=== PATIENT | male | born 1940 | race Caucasian/White ===

== ENCOUNTER 2019-06-26 17:27 | Emergency (ER) | payer MEDICARE, OTHER ==
--- NOTE | 2019-06-26 18:38 | EDM.PDOC ---
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 He was off his oxygen and carrying some materials. He was found unresponsive and blue on the floor outside. He was unresponsive for about 2 minutes before he woke and was gasping for air. Spouse started his oxygen and called for EMS. On EMS arrival to scene, patient was alert and oriented, responsive to verbal command. Had no symptoms, but still has peripheral cyanosis. He was palced on oxygen and brought into emergency room. In emergency room, pt is alert and wake. His SPO2 of room air is around 80%. His SPO2 did quickly improve above 92% on 2 litres of oxygen which is his baseline. No fever or chills. No cough, or shortness of breath. No chest pain or shortness of breath. No back pain, nausea of vomiting.No sweating. He has no complaints in the emergency room. Onset: Today Onset Date: 06/26/19 Onset Time: 15:30 Duration: Resolved Prior to Arrival Context: Denies: Trauma Associated Symptoms: Reports: Syncope. Denies: Confusion, Chest Pain, Cough, Diaphoresis, Fever/Chills, Headaches, Nausea/Vomiting, Rash, Seizure, Shortness of Breath, Weakness - Related Data Allergies Allergy/AdvReac Type Severity Reaction Status Date / Time naproxen Allergy Stomach Verified 06/26/19 18:38 Upset azithromycin AdvReac Stomach Verified 06/26/19 18:38 Ache Home Meds: Home Meds Albuterol [Proventil Neb Soln] 1 ampule INH Q4HR PRN 08/13/18 [History] Ascorbate Calcium [Vitamin C] 1 tab PO DAILY 08/13/18 [History] Aspirin [Aspirin EC] 325 mg PO DAILY 08/13/18 [History] Budesonide/Formoterol Fumarate [Symbicort 160-4.5 Mcg Inhaler] 1 puff IH BID [History] Calcium Carbonate [Calcium] 600 mg PO DAILY 08/13/18 [History] Metoprolol Succinate [Toprol XL 100mg] 100 mg PO BEDTIME 08/13/18 [History] Multivit-Min/FA/Lycopene/Lut [Sentry Senior Tablet] 1 each PO DAILY 08/13/18 [ History] Nitroglycerin [Nitrostat] 0.4 mg SL ASDIRECTED PRN 08/13/18 [History] [place]-3/DHA/Epa/Fish Oil [[place] 3 500 Softgel] 2 each PO DAILY 08/13/18 [History ] Omeprazole 1 cap PO DAILY 08/13/18 [History] amLODIPine Besylate [Norvasc] 2.5 mg PO DAILY 08/13/18 [History] Nitroglycerin [Nitrostat] 0.4 mg SL ASDIRECTED 06/26/19 [History] ED ROS GENERAL - Review of Systems Review Of Systems: See Below Constitutional: Denies: Fever, Chills HEENT: Denies: Rhinitis, Throat Pain Respiratory: Denies: Shortness of Breath, Wheezing, Pleuritic Chest Pain, Cough , Sputum Cardiovascular: Denies: Chest Pain, Lightheadedness GI/Abdominal: Denies: Abdominal Pain, Decreased Appetite, Nausea, Vomiting Musculoskeletal: Denies: Neck Pain, Shoulder Pain, Joint Pain, Joint Swelling Skin: Denies: Bruising, Pruritis Neurological: Denies: Confusion, Dizziness, Headache, Numbness, Tingling Psychiatric: Denies: Agitation, Anxiety ED EXAM, GENERAL - Physical Exam Exam: See Below Exam Limited By: No Limitations General Appearance: Alert, WD/WN, No Apparent Distress Eye Exam: Bilateral Eye: EOMI, PERRL Ears: Normal External Exam, Normal Canal, Hearing Grossly Normal, Normal TMs Ear Exam: Bilateral Ear: Auricle Normal, Canal Normal, TM normal Nose: Normal Inspection, Normal Mucosa, No Blood Throat/Mouth: Normal Inspection, Normal Lips, Normal Teeth, Normal Gums, Normal Oropharynx, Normal Voice, No Airway Compromise Head: Atraumatic, Normocephalic Neck: Normal Inspection, Supple, Non-Tender, Full Range of Motion Respiratory/Chest: No Respiratory Distress, Lungs Clear, Normal Breath Sounds, No Accessory Muscle Use, Chest Non-Tender Cardiovascular: Normal Peripheral Pulses, Regular Rate, Rhythm, No Edema, No Gallop, No JVD, No Murmur, No Rub GI/Abdominal: Normal Bowel Sounds, Soft, Non-Tender, No Organomegaly, No Distention, No Abnormal Bruit, No Mass Extremities: Normal Inspection Neurological: Alert, Oriented, CN II-XII Intact, Normal Cognition, Normal Gait, Normal Reflexes, No Motor/Sensory Deficits Skin Exam: Warm, Intact EKG INTERPRETATION EKG Date: 06/26/19 Rhythm: NSR Rate (Beats/Min): 55 [place]: Normal P-Wave: Present QRS: Normal ST-T: Normal QT: Normal EKG Interpretation Comments: Sinus bradycardia Course - Vital Signs Text/Narrative:: 79 year old male who has severe end stage O2 dependent COPD, had a short episode of syncope with low oxygen saturation. Spouse claims that his SPO2 does drop into 70s at time when no t on oxygen, but never has passed out. Pt's clinical exam is normal. He is asymptomatic. Considering his history. Did get EKG , which is in sinus bradycardia with no acute changes. Also Routine labs and cardiac enzymes ordered.His chest X-ray appears stable. His BC is normal. CMP is stable. His Troponin is negative. Apparently patient uses oxygen all the time. Today he was off his oxygen, outdoor door at subzero temperature nd exerting. All these activities has increased his oxygen demand, which has caused quick drop in his SPO2 and caused this hypoxic syncope. Patient has recovered very quickly, with out any complications. Pt and spouse reassured, that he should have his oxygen all the time at baseline of 2 liters per minutes. It can be increased to 3-4 liters when he is exerting or active. Pt has remained hemodynamically stable all through the emergency room stay.His syncopal episode might be due to increased oxygen demand , accelerated by increased work demand and the out door cold temperature. Last Recorded V/S: Last Vital Signs Temp 97 F 06/26/19 18:23 Pulse 56 L 06/26/19 18:45 Resp 20 06/26/19 18:45 BP 149/69 H 06/26/19 18:45 Pulse Ox 91 L 06/26/19 18:56 - Orders/Labs/Meds Orders: Active Orders 24 hr Category Date Time Status EKG Documentation Completion [RC] ASDIRECTED Care 06/26/19 18:21 Ordered Chest 1V Frontal [CR] Stat Exams 06/26/19 18:21 Ordered EKG 12 Lead [EK] Routine Ther 06/26/19 18:20 Ordered Labs: Laboratory Tests 06/26/19 06/26/19 Range/Units 18:30 18:30 WBC 7.1 (4.0-11.0) K/uL RBC 5.98 (4.50-6.50) M/uL Hgb 13.3 (13.0-18.0) g/dL Hct 43.7 (40.0-54.0) % MCV 73 L (76-96) fL MCH 22.2 L (27.0-32.0) pg MCHC 30.4 L (31.0-35.0) g/dL RDW 21.5 H (11.0-16.0) % Plt Count 208 (150-400) K/uL MPV 11.0 H (6.0-10.0) fL Neut % (Auto) 71.8 H (45.0-70.0) % Lymph % (Auto) 13.7 L (20.0-40.0) % [place] % (Auto) 10.4 H (3.0-10.0) % Eos % (Auto) 2.8 (1.0-5.0) % Baso % (Auto) 1.3 H (0.0-0.5) % Neut # (Auto) 5.09 (2.00-7.50) K/uL Lymph # (Auto) 0.97 L (1.50-4.00) K/uL [place] # (Auto) 0.74 (0.20-0.80) K/uL Eos # (Auto) 0.20 (0.04-0.40) K/uL Baso # (Auto) 0.09 (0.02-0.10) K/uL Sodium 140 (136-145) mmol/L Potassium 4.2 (3.5-5.1) mmol/L Chloride 103 (98-107) mmol/L Carbon Dioxide 27.6 (21.0-32.0) mmol/L Anion Gap 13.6 (5.0-15.0) mmol/L BUN 12 (8-26) mg/dL Creatinine 0.83 (0.70-1.30) mg/dL Est Cr Clr Drug Dosing 60.72 mL/min Estimated GFR (MDRD) > 60 (>60) MLS/MIN BUN/Creatinine Ratio 14.5 (6-25) Glucose 95 (74-100) mg/dL Calcium 8.9 (8.5-10.1) mg/dL Total Bilirubin 0.3 D (0.0-1.0) mg/dL AST 25 (15-37) U/L ALT 19 (12-78) U/L Alkaline Phosphatase 96 (46-116) U/L Troponin I < 0.017 (0.000-0.060) ng/mL Total Protein 7.9 (6.4-8.2) g/dL Albumin 3.6 (3.4-5.0) g/dL Globulin 4.3 H (2.2-4.2) g/dL Albumin/Globulin Ratio 0.8 (0.8-2.0) Departure - Departure Time of Disposition: 19:10 Disposition: Home, Self-Care 01 Condition: Fair Clinical Impression: Non-cardiac syncope, COPD (chronic obstructive pulmonary disease), Hypoxia - Discharge Information *PRESCRIPTION DRUG MONITORING PROGRAM REVIEWED*: Not Applicable *COPY OF PRESCRIPTION DRUG MONITORING REPORT IN PATIENT ROBINSON: Not Applicable Forms: ED Department Discharge Additional Instructions: 79 year old male who has severe end stage O2 dependent COPD, had a short episode of syncope with low oxygen saturation. Spouse claims that his SPO2 does drop into 70s at time when no t on oxygen, but never has passed out. Pt's clinical exam is normal. He is asymptomatic. Considering his history. Did get EKG , which is in sinus bradycardia with no acute changes. Also Routine labs and cardiac enzymes ordered.His chest X-ray appears stable. His BC is normal. CMP is stable. His Troponin is negative. Apparently patient uses oxygen all the time. Today he was off his oxygen, outdoor door at subzero temperature nd exerting. All these activities has increased his oxygen demand, which has caused quick drop in his SPO2 and caused this hypoxic syncope. Patient has recovered very quickly, with out any complications. Pt and spouse reassured, that he should have his oxygen all the time at baseline of 2 liters per minutes. It can be increased to 3-4 liters when he is exerting or active. Pt has remained hemodynamically stable all through the emergency room stay.His syncopal episode might be due to increased oxygen demand , accelerated by increased work demand and the out door cold temperature. - Problem List & Annotations (1) COPD (chronic obstructive pulmonary disease) SNOMED Code(s): 20930225 Code(s): J44.9 - CHRONIC OBSTRUCTIVE PULMONARY DISEASE, UNSPECIFIED Status : Acute (2) Hypoxia SNOMED Code(s): 390563944 Code(s): R09.02 - HYPOXEMIA Status: Acute (3) Non-cardiac syncope SNOMED Code(s): 093540397 Code(s): R55 - SYNCOPE AND COLLAPSE Status: Acute - Problem List Review Problem List Initiated/Reviewed/Updated: Yes - My Orders Last 24 Hours: My Active Orders 06/26/19 18:20 EKG 12 Lead [EK] Routine 06/26/19 18:21 EKG Documentation Completion [RC] ASDIRECTED Chest 1V Frontal [CR] Stat - Assessment/Plan Last 24 Hours: My Active Orders 06/26/19 18:20 EKG 12 Lead [EK] Routine 06/26/19 18:21 EKG Documentation Completion [RC] ASDIRECTED Chest 1V Frontal [CR] Stat Assessment:: Non cardiac syncope with hypoxia COPD Plan: 79 year old male who has severe end stage O2 dependent COPD, had a short episode of syncope with low oxygen saturation. Spouse claims that his SPO2 does drop into 70s at time when no t on oxygen, but never has passed out. Pt's clinical exam is normal. He is asymptomatic. Considering his history. Did get EKG , which is in sinus bradycardia with no acute changes. Also Routine labs and cardiac enzymes ordered.His chest X-ray appears stable. His BC is normal. CMP is stable. His Troponin is negative. Apparently patient uses oxygen all the time. Today he was off his oxygen, outdoor door at subzero temperature nd exerting. All these activities has increased his oxygen demand, which has caused quick drop in his SPO2 and caused this hypoxic syncope. Patient has recovered very quickly, with out any complications. Pt and spouse reassured, that he should have his oxygen all the time at baseline of 2 liters per minutes. It can be increased to 3-4 liters when he is exerting or active. Pt has remained hemodynamically stable all through the emergency room stay.His syncopal episode might be due to increased oxygen demand , accelerated by increased work demand and the out door cold temperature.
--- NOTE | 2019-06-27 13:17 | CR ---
Date of Service: Clinical Data: syncope AP PORTABLE CHEST: Comparison is made to a prior exam dated 12/14/18. The patient is status post median sternotomy. The heart size is at the upper limits of normal. There is a mass posterior to the heart consistent with a hiatal hernia. The pulmonary vasculature does appear to be slightly more prominent than on the prior exam suggesting mild pulmonary venous congestion. The left costophrenic angle was cut off from the film. The visualized lungs are clear. No pneumothorax. No pleural effusions. No other significant findings. [id number] [facility]
== END 2019-06-26 19:20 | disposition home or self-care (01) ==
LOC: LB.ED 17:27
DX: J44.9 Chronic obstructive pulmonary disease, unspecified (principal); R09.02 Hypoxemia; R55 Syncope and collapse; Z88.1 Allergy status to other antibiotic agents; Z88.6 Allergy status to analgesic agent
CPT/HCPCS: 36415; 71045; 80053; 84484; 85025; 99284; 99284-25; A0425; A0429

== ENCOUNTER 2020-02-03 09:32 | Emergency (ER) | payer MEDICARE, OTHER ==
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
[2020-02-03] MEDS ORDERED: cefTRIAXone 1 GM in Sodium Chloride 0.9% 50 ML IV ONE (11:00)
[2020-02-03] MEDS ORDERED: cefTRIAXone 1 GM Vial ONE (11:05)
--- NOTE | 2020-02-03 16:46 | CR ---
DATE OF SERVICE: 02/03/20 CLINICAL DATA: short of breath AP CHEST: Comparison is made to a prior exam dated 06/26/19. The patient is status post median sternotomy. The heart size is normal. There is calcification of the aortic arch. There is a ramandeep posterior to the heart consistent with a moderately large hiatal hernia. The pulmonary vascular congestion on the prior exam has improved. There are atelectatic changes in both lung bases. The lungs are otherwise clear. No pneumothorax. No pleural effusions. [id number] [facility]
== END 2020-02-03 11:30 | disposition home or self-care (01) ==
LOC: LB.ED 09:32
DX: J18.9 Pneumonia, unspecified organism (principal); I10 Essential (primary) hypertension; I25.2 Old myocardial infarction; J44.9 Chronic obstructive pulmonary disease, unspecified; K21.9 Gastro-esophageal reflux disease without esophagitis; M19.90 Unspecified osteoarthritis, unspecified site; Z79.82 Long term (current) use of aspirin; Z79.899 Other long term (current) drug therapy; Z88.6 Allergy status to analgesic agent; Z88.1 Allergy status to other antibiotic agents; Z20.828 Contact with and (suspected) exposure to other viral communicable diseases
CPT/HCPCS: 36415; 71045; 80048; 85025; 96374; 99285-25; J0696; J7050; U0002

== ENCOUNTER 2020-12-10 15:30 | Emergency (ER) | payer MEDICARE, OTHER ==
[2020-12-10] MEDS ORDERED: Sodium Chloride 0.9% 10 ML Syringe FLUSH PRN (15:50)
[2020-12-10] MEDS: Sodium Chloride 0.9% 1,000 ML IV SCH (16:40)
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
[2020-12-10] MEDS: Iodixanol 652 MG/ML 100 ML Bottle IV SCH (17:57)
[2020-12-10] MEDS: Sodium Chloride 0.9% 50 ML SDV FLUSH ONE (17:57)
--- NOTE | 2020-12-11 09:43 | CT ---
DATE OF SERVICE: 12/10/20 CLINICAL DATA: lower GI bleed ENHANCED ABDOMEN AND PELVIC CT: Multislice acquisition through the abdomen and pelvis with IV, but without oral contrast was performed. Comparison is made to a prior exam dated 08/13/18. There is a 3 mm subpleural nodule in the right lower lobe posterolaterally. The lung bases are otherwise clear. There is calcified pleural plaque along the dome of the left hemidiaphragm most likely related to prior asbestos exposure. There is a large hiatal hernia. The heart size is normal. The liver is normal size. There is diffuse fatty infiltration of the liver with focal fat sparing in the left lobe of the liver adjacent to the falciform ligament. The liver otherwise appears normal. The gallbladder appears normal. No biliary duct dilatation. The spleen appears normal. The pancreas appears normal. The right and left adrenals appear normal. The right and left kidneys enhance symmetrically. There is a benign-appearing cyst projecting from the lower pole of the right kidney, unchanged. There are small cysts in the left kidney. No hydronephrosis or hydroureter. The bladder is fluid-filled. It appears normal. The prostate remains enlarged, unchanged. No evidence of appendicitis. There is diverticulosis of the descending and sigmoid colon. No evidence of diverticulitis. There is mural thickening throughout the sigmoid colon. This is probably related to chronic diverticular disease. Colitis or an infiltrating process should at least be considered and colonoscopy is recommended. No free air. No free fluid. No dilated loops of bowel. No adenopathy. No aortic aneurysm or dissection. No other significant findings. IMPRESSION: Multiple findings as discussed above. See above recommendation. [id number] [facility]
== END 2020-12-10 18:45 | disposition home or self-care (01) ==
LOC: LB.ED 15:30
DX: K92.2 Gastrointestinal hemorrhage, unspecified (principal); J44.9 Chronic obstructive pulmonary disease, unspecified; I25.10 Atherosclerotic heart disease of native coronary artery without angina pectoris; I25.2 Old myocardial infarction; I10 Essential (primary) hypertension; K21.9 Gastro-esophageal reflux disease without esophagitis; Z79.82 Long term (current) use of aspirin; Z79.899 Other long term (current) drug therapy; Z88.1 Allergy status to other antibiotic agents; Z88.8 Allergy status to other drugs, medicaments and biological substances; Z87.891 Personal history of nicotine dependence
CPT/HCPCS: 36415; 74177; 80053; 82272; 85025; 85610; 99283; 99285-25; J7030

== ENCOUNTER 2021-07-11 09:24 | Emergency (ER) | payer MEDICARE, OTHER ==
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
[2021-07-11] MEDS ORDERED: Albuterol/Ipratropium 3.0-0.5 MG/3 ML Neb Soln NEB STA ×2 (12:15→12:22)
--- NOTE | 2021-07-11 12:22 | CR ---
DATE OF SERVICE: 07/11/2021 CLINICAL DATA: RESPIRATORY DISTRESS Chest: PA and lateral chest: Comparison made to a prior exam dated 03 Feb 2020. The patient is status post median sternotomy. The heart size is within normal limits. There is calcification of the aortic arch. The pulmonary vasculature is mildly prominent with mild cephalization of flow suggesting mild pulmonary venous congestion. There is a large hiatal hernia with compressive atelectasis of the adjacent lower lobes. There are atelectatic changes in both lung bases. No areas of consolidation. There is slight blunting of both costophrenic angles suggesting small bilateral pleural effusions. No other significant findings. No pneumothorax. MTDD
[2021-07-11] MEDS ORDERED: Albuterol/Ipratropium 3.0-0.5 MG/3 ML Neb Soln ONE (12:29)
[2021-07-11] MEDS ORDERED: Sodium Chloride 0.9% 50 ML SDV FLUSH ONE (13:52)
[2021-07-11] MEDS ORDERED: Iopamidol 612 MG/ML 100 ML Bottle IV SCH (14:00)
--- NOTE | 2021-07-11 15:00 | CT ---
DATE OF SERVICE: 07/11/2021 CLINICAL DATA: RESPIRATORY DISTRESS, R/O PE Enhanced chest CT: Multi slice acquisition through the chest with IV contrast was performed. Multiplanar images are reviewed. No priors. No evidence of PE. No pneumothorax. No pleural effusions. No aortic aneurysm or dissection. There are mild atelectatic changes in the dependent portion of both lungs. There is a large hiatal hernia with compressive atelectasis of the adjacent lower lobes. There are scattered reticular opacities throughout both lungs. There is an area of consolidation in the right costophrenic angle posteriorly. Pneumonia should be considered. No pulmonary edema. The heart size is within normal limits. There are severe coronary artery calcifications. No significant pericardial effusion. There are nonspecific retrocaval pretracheal, precarinal, and subcarinal nodes. A couple of these are mildly enlarged. There also nonspecific hilar nodes bilaterally. There is gas within the says thoracic esophagus most likely related to GE reflux. The patient is status post median sternotomy. There is degenerative disc disease throughout the thoracic spine. No other significant findings MTDD
== END 2021-07-11 15:30 | disposition home or self-care (01) ==
LOC: LB.ED 09:24
DX: J44.1 Chronic obstructive pulmonary disease with (acute) exacerbation (principal); K21.9 Gastro-esophageal reflux disease without esophagitis; R00.1 Bradycardia, unspecified; I10 Essential (primary) hypertension; I25.2 Old myocardial infarction; M19.90 Unspecified osteoarthritis, unspecified site; Z88.8 Allergy status to other drugs, medicaments and biological substances; Z88.1 Allergy status to other antibiotic agents; Z79.82 Long term (current) use of aspirin; Z79.899 Other long term (current) drug therapy; Z20.822 Contact with and (suspected) exposure to COVID-19
CPT/HCPCS: 36415; 71046; 71260; 80048; 81003; 82803; 84484; 85025; 85379; 99285; Q9967; U0002; J7620-GY

== ENCOUNTER 2021-12-17 07:07 | Emergency (ER) | payer MEDICARE, OTHER ==
[2021-12-17] MEDS ORDERED: Sodium Chloride 0.9% 10 ML Syringe FLUSH PRN (08:41)
[2021-12-17] MEDS: Sodium Chloride 0.9% 500 ML IV ONE (08:49)
== END 2021-12-17 09:43 | disposition home or self-care (01) ==
LOC: LB.ED 07:07
DX: A08.4 Viral intestinal infection, unspecified (principal); I10 Essential (primary) hypertension; I25.2 Old myocardial infarction; K21.9 Gastro-esophageal reflux disease without esophagitis; J44.9 Chronic obstructive pulmonary disease, unspecified; I48.91 Unspecified atrial fibrillation; Z87.891 Personal history of nicotine dependence; Z95.1 Presence of aortocoronary bypass graft; Z88.1 Allergy status to other antibiotic agents; Z88.5 Allergy status to narcotic agent; Z79.01 Long term (current) use of anticoagulants; Z79.899 Other long term (current) drug therapy
CPT/HCPCS: 36415; 80048; 81001; 83605; 84484; 85025; 87086; 87088; 87186; 93005; 99283; 99284-25; J7040

== ENCOUNTER 2022-01-05 20:56 | Emergency (ER) | payer MEDICARE, OTHER ==
[2022-01-05] MEDS ORDERED: Albuterol/Ipratropium 3.0-0.5 MG/3 ML Neb Soln NEB ONE (21:50)
[2022-01-05] MEDS ORDERED: methylPREDNISolone Sodium Succinate 125 MG/2 ML SDV IVPUSH ONE (21:52)
[2022-01-06] MEDS ORDERED: Albuterol/Ipratropium 3.0-0.5 MG/3 ML Neb Soln ONE (00:04)
[2022-01-06] MEDS ORDERED: Ondansetron 4 MG/2 ML SDV ONE (00:04)
== END 2022-01-06 00:15 ==
LOC: LB.ED 20:56
DX: J44.1 Chronic obstructive pulmonary disease with (acute) exacerbation (principal); E87.2 Acidosis; K21.9 Gastro-esophageal reflux disease without esophagitis; I10 Essential (primary) hypertension; I25.2 Old myocardial infarction; I48.91 Unspecified atrial fibrillation; Z88.1 Allergy status to other antibiotic agents; Z88.5 Allergy status to narcotic agent; Z79.01 Long term (current) use of anticoagulants; Z20.822 Contact with and (suspected) exposure to COVID-19
CPT/HCPCS: 36415; 36600; 71045; 80053; 82803; 83605; 83880; 84484; 85025; 93005; 96374; 96375; 99283; 99285; J2405; J2930; U0002; J7620

== ENCOUNTER 2022-01-25 12:20 | Emergency (ER) | payer MEDICARE, OTHER | END 2022-01-25 15:35 | disposition home or self-care (01) | LOC: LB.ED 12:20 | DX: U07.1 COVID-19 (principal); I25.2 Old myocardial infarction; I10 Essential (primary) hypertension; J44.9 Chronic obstructive pulmonary disease, unspecified; I48.91 Unspecified atrial fibrillation; K21.9 Gastro-esophageal reflux disease without esophagitis; Z88.1 Allergy status to other antibiotic agents; Z88.5 Allergy status to narcotic agent; Z79.899 Other long term (current) drug therapy; Z79.01 Long term (current) use of anticoagulants; Z95.1 Presence of aortocoronary bypass graft | CPT/HCPCS: 36415; 71045; 80048; 83605; 85025; 99281; 99283-25 ==

== ENCOUNTER 2022-04-24 13:35 | Emergency (ER) | payer MEDICARE, OTHER ==
[2022-04-24] MEDS: Sodium Chloride 0.9% 1,000 ML IV ONE ×2 (14:33→16:53)
[2022-04-24 14:48] LABS: TROPONIN I HIGH SENSITIVITY 73.8 pg/ml (<=60.4)
[2022-04-24] MEDS: ceFAZolin 2 GM in Sodium Chloride 0.9% 100 ML IV ONE ×2 (16:04→16:38)
[2022-04-24] MEDS ORDERED: ceFAZolin 1 GM Vial ONE (16:09)
[2022-04-24] MEDS ORDERED: Furosemide 40 MG/4 ML VIAL IVPUSH ONE (16:16)
[2022-04-24] MEDS ORDERED: Furosemide 40 MG/4 ML VIAL ONE (16:28)
[2022-04-24] MEDS ORDERED: Metoprolol Tartrate 5 MG in Sodium Chloride 0.9% 50 ML IV ONE (18:10)
[2022-04-24] MEDS ORDERED: Metoprolol Tartrate 50 MG Tab PO ONE (18:11)
[2022-04-24] MEDS ORDERED: Metoprolol Tartrate 5 MG/5 ML SDV ONE (18:23)
[2022-04-24] MEDS ORDERED: Metoprolol Tartrate 50 MG Tab ONE (19:11)
[2022-04-24] MEDS ORDERED: fentaNYL 100 MCG/2 ML SDV IVPUSH ONE (19:31)
[2022-04-24] MEDS ORDERED: Ondansetron 4 MG/2 ML SDV IVPUSH ONE (19:41)
[2022-04-24] MEDS ORDERED: fentaNYL 100 MCG/2 ML SDV ONE (19:43)
[2022-04-24] MEDS ORDERED: Ondansetron 4 MG/2 ML SDV ONE (19:46)
== END 2022-04-24 20:00 ==
LOC: LB.ED 13:35
DX: I21.4 Non-ST elevation (NSTEMI) myocardial infarction (principal); D50.9 Iron deficiency anemia, unspecified; I10 Essential (primary) hypertension; I25.2 Old myocardial infarction; J44.9 Chronic obstructive pulmonary disease, unspecified; I25.10 Atherosclerotic heart disease of native coronary artery without angina pectoris; K21.9 Gastro-esophageal reflux disease without esophagitis; Z95.1 Presence of aortocoronary bypass graft; Z88.1 Allergy status to other antibiotic agents; Z88.5 Allergy status to narcotic agent; Z79.01 Long term (current) use of anticoagulants; Z79.899 Other long term (current) drug therapy; Z79.82 Long term (current) use of aspirin; Z87.891 Personal history of nicotine dependence; Z20.822 Contact with and (suspected) exposure to COVID-19
CPT/HCPCS: 36415; 71045; 72040; 80053; 83605; 83880; 84484; 85025; 93005; 96361; 96365; 96375; 99285; A0425; A0429; A9270; J1940; J2405; J3010; J3490; J7030; U0002; J0690